=== PATIENT | male | born 1945 | race Asian ===

== ENCOUNTER 2018-10-09 11:50 | Emergency (ER) | payer OTHER ==
[~2018-10-09] VITALS: Ht 162.6 cm; Wt 68.2 kg
[2018-10-09] MEDS ORDERED: SODIUM CHLORIDE 0.9% 1,000 ML IV ONE (12:45)
[2018-10-09 12:48] LABS: GLUCOSE,POINT OF CARE 307 MG/DL (70-110)
[2018-10-09 13:23] LABS: BASOPHILS % (AUTO) 0.3 % (0.0-2.0); EOSINOPHILS % (AUTO) 0 % (1.0-6.0); HEMATOCRIT 25.6 % (41-53); HEMOGLOBIN 8.8 g/dL (13.5-17.5); LYMPHOCYTES % (AUTO) 12.5 % (22.0-44.0); MEAN CORPUSCULAR HGB CONC 34.4 G/dL (31.0-37.0); MEAN CORPUSCULAR VOLUME 96 fL (80-100); MONOCYTES # (AUTO) 0.3 K/uL (0.1-1.0); NEUTROPHILS # (AUTO) 6.3 K/uL (1.8-7.7); NEUTROPHILS % (AUTO) 83.2 % (40.0-70.0); PLATELET COUNT (AUTO) 141 K/uL (150-450); RED BLOOD CELL COUNT(AUTO) 2.67 MIL/uL (4.50-5.90); RED CELL DISTRIBUTION WIDTH 15.1 % (11.5-14.5)
[2018-10-09 13:39] LABS: BILIRUBIN,TOTAL 0.4 mg/dL (0.1-1.0); CREATININE 3.67 mg/dL (0.60-1.30); TOTAL PROTEIN, SERUM 6.4 g/dL (6.4-8.2)
[2018-10-09 14:18] LABS: GLUCOSE,POINT OF CARE 250 MG/DL (70-110)
[2018-10-09] MEDS ORDERED: CLOPIDOGREL BISULFATE 75 MG TABLET PO ONE (14:30)
[2018-10-09] MEDS ORDERED: TAMS0.4C32 PO (14:32)
[2018-10-09] MEDS ORDERED: LEVO88TA4 PO (14:32)
[2018-10-09] MEDS ORDERED: FURO40 PO (14:32)
[2018-10-09] MEDS ORDERED: ALLO300 PO (14:32)
[2018-10-09] MEDS ORDERED: ASPI81 PO (14:32)
[2018-10-09] MEDS ORDERED: ATOR40TA28 PO (14:32)
[2018-10-09] MEDS ORDERED: LOSA25TA16 PO (14:32)
[2018-10-09] MEDS ORDERED: CALC25 PO (14:32)
[2018-10-09] MEDS ORDERED: GLIP10 PO (14:32)
[2018-10-09 15:41] LABS: PROTHROMBIN TIME 10.6 SEC (9.4-11.6)
[2018-10-09] MEDS ORDERED: PANTOPRAZOLE SODIUM 40 MG/VIAL IVP ONE (17:00)
[2018-10-09] MEDS ORDERED: PANTOPRAZOLE SODIUM 80 MG in SODIUM CHLORIDE 0.9% 100 ML IV SCH (17:00)
[2018-10-09 18:48] VITALS: BP 130/70
[2018-10-09 18:54] LABS: GLUCOSE,POINT OF CARE 191 MG/DL (70-110)
== END 2018-10-09 19:10 | disposition short-term general hospital (02) ==
LOC: EMS 11:51
DX: K92.2 Gastrointestinal hemorrhage, unspecified (principal); E11.65 Type 2 diabetes mellitus with hyperglycemia; D64.9 Anemia, unspecified; N17.9 Acute kidney failure, unspecified; E11.21 Type 2 diabetes mellitus with diabetic nephropathy; R79.89 Other specified abnormal findings of blood chemistry; E78.00 Pure hypercholesterolemia, unspecified; E03.9 Hypothyroidism, unspecified; Z88.6 Allergy status to analgesic agent; Z88.0 Allergy status to penicillin
CPT/HCPCS: 36415; 70450; 71045; 80053; 82270; 82271; 82962; 84484; 85025; 85610; 85730; 93005; 96361; 96365; 96366; 96375; 99285; C9113; J7030; J7050

== ENCOUNTER 2018-11-23 05:33 | Inpatient (IN) | payer OTHER ==
[~2018-11-23] VITALS: Ht 162.6 cm; Wt 97.6 kg
[~2018-11-23 05:33] MED LIST: ALLO300 PO; ASPI81 PO; ATOR40TA28 PO; CALC25 PO; FURO40 PO; GLIP10 PO; LEVO88TA4 PO; LOSA25TA41 PO; TAMS0.4C32 PO
[2018-11-23] MEDS ORDERED: IPRATROPIUM BROMIDE 0.5 MG/2.5 ML NEB SOLUTION NEB ONE (06:00)
[2018-11-23] MEDS ORDERED: ALBUTEROL SULFATE 5 MG/ML 20 ML NEB SOLN [BULK] NEB ONE (06:00)
[2018-11-23 06:33] LABS: BASOPHILS % (AUTO) 0.6 % (0.0-2.0); EOSINOPHILS % (AUTO) 2.5 % (1.0-6.0); HEMATOCRIT 32.8 % (41-53); LYMPHOCYTES % (AUTO) 15.6 % (22.0-44.0); MEAN CORPUSCULAR HEMOGLOBIN 31.8 pg (26.0-34.0); MEAN CORPUSCULAR HGB CONC 33.4 G/dL (31.0-37.0); MEAN CORPUSCULAR VOLUME 95 fL (80-100); MONOCYTES # (AUTO) 0.6 K/uL (0.1-1.0); MONOCYTES % (AUTO) 8.7 % (2.0-9.0); NEUTROPHILS # (AUTO) 4.9 K/uL (1.8-7.7); NEUTROPHILS % (AUTO) 72.6 % (40.0-70.0); PLATELET COUNT (AUTO) 168 K/uL (150-450); RED BLOOD CELL COUNT(AUTO) 3.45 MIL/uL (4.50-5.90); RED CELL DISTRIBUTION WIDTH 16.2 % (11.5-14.5)
[2018-11-23 06:53] LABS: CALCIUM, TOTAL 9.3 mg/dL (8.8-10.5); CREATININE 3.44 mg/dL (0.60-1.30); POTASSIUM 4.1 mmol/L (3.5-5.1)
[2018-11-23 06:59] LABS: BILIRUBIN,TOTAL 0.4 mg/dL (0.1-1.0); TOTAL PROTEIN, SERUM 6.6 g/dL (6.4-8.2)
[2018-11-23] MEDS ORDERED: LEVOFLOXACIN 750 MG/D5% WATER 150 ML IV ONE (07:00)
[2018-11-23] MEDS ORDERED: AZITHROMYCIN 500 MG/NS 250 ML IV ONE (07:00)
[2018-11-23] MEDS ORDERED: METOPROLOL TARTRATE 5 MG/5 ML VIAL IVP ONE (07:15)
[2018-11-23] MEDS ORDERED: ASPIRIN 81 MG CHEWABLE TABLET PO ONE (07:15)
[2018-11-23] MEDS ORDERED: NITROGLYCERIN 2% (1 GM=INCH) PACKET TP ONE (07:15)
[2018-11-23] MEDS ORDERED: HEPARIN SODIUM,PORCINE 5,000 UNITS/ML VIAL IVP PRN ×4 (08:00→22:15)
[2018-11-23 08:03] LABS: PROTHROMBIN TIME 10.2 SEC (9.4-11.6)
[2018-11-23] MEDS: HEPARIN SODIUM 25000 UNITS/D5W 250 ML IV PRN ×2 (08:25→17:00)
[2018-11-23] MEDS ORDERED: HYDROCODONE/ACETAMINOPHEN 5-325 MG TABLET PO PRN (13:30)
[2018-11-23] MEDS ORDERED: MORPHINE SULFATE 4 MG/ML SYRINGE IVP PRN (13:30)
[2018-11-23] MEDS ORDERED: DEXTROSE 50%-WATER 25 GM/50 ML SYRINGE IVP PRN (13:30)
[2018-11-23] MEDS ORDERED: BISACODYL 10 MG RECTAL RECTAL SUPPOSITORY PR PRN (13:30)
[2018-11-23] MEDS ORDERED: ZOLPIDEM TARTRATE 5 MG TABLET PO PRN (13:30)
[2018-11-23] MEDS ORDERED: ACETAMINOPHEN 325 MG TABLET PO PRN (13:30)
[2018-11-23] MEDS ORDERED: ONDANSETRON HCL 4 MG/2 ML VIAL IVP PRN (13:30)
[2018-11-23] MEDS ORDERED: MAGNESIUM HYDROXIDE SUSPENSION 30 ML UDCUP PO PRN (13:30)
[2018-11-23 16:00] VITALS: BP 165/73
[2018-11-23] MEDS ORDERED: HEPARIN SODIUM,PORCINE 5,000 UNITS/ML VIAL SQ SCH (16:00)
[2018-11-23 17:09] LABS: APPEARANCE,URINE CLEAR (CLEAR); BILIRUBIN,URINE NEGATIVE (NEGATIVE); GLUCOSE, URINE (UA) 100 mg/dL (NEGATIVE); KETONES,URINE NEGATIVE (NEGATIVE); LEUKOCYTE ESTERASE ,URINE NEGATIVE (NEGATIVE); NITRATE,URINE NEGATIVE (NEGATIVE); OCCULT BLOOD,URINE TRACE (NEGATIVE); PROTEIN,URINE SEE CONFIRM (NEGATIVE); UROBILINOGEN,URINE 0.2 mg/dL (<=1.0)
[2018-11-23 17:14] LABS: PROTEIN,URINE RANDOM 447 mg/dL (0-11.9); SODIUM,URINE RANDOM 45 mmol/l (20-110); UREA NITROGEN,URINE RANDOM 620 mg/dL (350-1000)
[2018-11-23 17:31] LABS: SULFOSALICYLIC ACID,URINE 4+ (Negative)
[2018-11-23 17:32] LABS: BACTERIA,URINE Rare /HPF (None Seen); SQUAMOUS EPITHELIAL CELL,UR Few /LPF (None Seen); WBC,URINE 0-2 /HPF (0-5)
[2018-11-23] MEDS: INSULIN LISPRO 100 UNITS/ML SQ PRN ×2 (18:07→21:42)
[2018-11-23 20:00] VITALS: BP 166/87
[2018-11-23] MEDS ORDERED: FUROSEMIDE 20 MG/2 ML VIAL IVP SCH (21:00)
[2018-11-23] MEDS: DOCUSATE SODIUM 100 MG CAPSULE PO SCH (21:32)
[2018-11-23] MEDS ORDERED: HEPARIN SODIUM 25000 UNITS/D5W 250 ML IV PRN (22:06)
[2018-11-23] MEDS ORDERED: HydrALAZINE HCL 20 MG/ML VIAL IVP PRN (22:15)
[2018-11-23 22:39] LABS: GLUCOSE,POINT OF CARE 193 MG/DL (70-110)
[2018-11-24] VITALS: BP 147/61
[2018-11-24 04:00] VITALS: BP 169/87
[2018-11-24 05:19] LABS: GLUCOSE,POINT OF CARE 263 MG/DL (70-110)
[2018-11-24] MEDS ORDERED: LEVOTHYROXINE SODIUM 88 MCG TABLET PO SCH (06:30)
[2018-11-24 06:48] LABS: BASOPHILS % (AUTO) 0.4 % (0.0-2.0); EOSINOPHILS % (AUTO) 2.3 % (1.0-6.0); HEMATOCRIT 30.5 % (41-53); HEMOGLOBIN 10.4 g/dL (13.5-17.5); LYMPHOCYTES % (AUTO) 12.7 % (22.0-44.0); MEAN CORPUSCULAR HGB CONC 34.2 G/dL (31.0-37.0); MEAN CORPUSCULAR VOLUME 93 fL (80-100); MONOCYTES # (AUTO) 0.8 K/uL (0.1-1.0); MONOCYTES % (AUTO) 9.5 % (2.0-9.0); NEUTROPHILS % (AUTO) 75.1 % (40.0-70.0); PLATELET COUNT (AUTO) 160 K/uL (150-450); RED BLOOD CELL COUNT(AUTO) 3.26 MIL/uL (4.50-5.90); RED CELL DISTRIBUTION WIDTH 16.1 % (11.5-14.5)
[2018-11-24] MEDS: INSULIN LISPRO 100 UNITS/ML SQ PRN (07:11)
[2018-11-24 07:21] LABS: CALCIUM, TOTAL 9.2 mg/dL (8.8-10.5); CHOL/HDL RATIO 2.1 (4.2-7.3); CREATININE 2.93 mg/dL (0.60-1.30); PHOSPHORUS 4.2 mg/dL (2.5-4.9); POTASSIUM 4.3 mmol/L (3.5-5.1); THYROID STIMULATING HORMONE 0.2 uIU/mL (0.36-3.74)
[2018-11-24 08:00] VITALS: BP 157/81
[2018-11-24] MEDS: DOCUSATE SODIUM 100 MG CAPSULE PO SCH (08:06)
[2018-11-24 08:34] LABS: GLUCOSE,POINT OF CARE 170 MG/DL (70-110)
[2018-11-24] MEDS: NITROGLYCERIN 2% (1 GM=INCH) PACKET TP SCH ×2 (08:46→16:56)
[2018-11-24] MEDS ORDERED: CALCITRIOL 0.25 MCG CAPSULE PO SCH (09:00)
[2018-11-24] MEDS ORDERED: TAMSULOSIN HCL 0.4 MG CAPSULE PO SCH (09:00)
[2018-11-24] MEDS ORDERED: BUMETANIDE 0.25 MG/ML 4 ML VIAL IVP SCH (09:00)
[2018-11-24] MEDS ORDERED: PANTOPRAZOLE SODIUM 40 MG DR TABLET PO SCH (09:00)
[2018-11-24] MEDS ORDERED: ATORVASTATIN CALCIUM 40 MG TABLET PO SCH (09:00)
[2018-11-24] MEDS ORDERED: ASPIRIN 81 MG CHEWABLE TABLET PO SCH ×2 (09:00)
[2018-11-24 12:00] VITALS: BP 125/59
[2018-11-24 15:24] LABS: GLUCOSE,POINT OF CARE 155 MG/DL (70-110)
[2018-11-24 16:00] VITALS: BP 156/80
[2018-11-24] MEDS ORDERED: NITROGLYCERIN 2% (1 GM=INCH) PACKET TP SCH (16:00)
[2018-11-24 18:09] LABS: GLUCOSE,POINT OF CARE 132 MG/DL (70-110)
[2018-11-25 13:06] LABS: ALPHA-1 (IFE & PEP) 0.3 g/dL (0.0-0.4); GAMMA GLOBULINS (IFE & ELP) 1.3 g/dL (0.4-1.8); IGM (IMMUNOFIXATION) 78 mg/dL (15-143)
[2018-11-25 14:08] LABS: ALBUMIN URINE (ELP) 50.1 %
== END 2018-11-24 19:25 | disposition short-term general hospital (02) | DRG 280 ==
LOC: EMS 05:34 → ICU 15:12
PROVIDERS: ADMIT Internal Medicine; ATTEND Internal Medicine
DX: I21.4 Non-ST elevation (NSTEMI) myocardial infarction (principal); J18.9 Pneumonia, unspecified organism; I50.31 Acute diastolic (congestive) heart failure; I13.0 Hypertensive heart and chronic kidney disease with heart failure and stage 1 through stage 4 chronic kidney disease, or unspecified chronic kidney disease; N18.4 Chronic kidney disease, stage 4 (severe); E03.9 Hypothyroidism, unspecified; E11.22 Type 2 diabetes mellitus with diabetic chronic kidney disease; Z88.0 Allergy status to penicillin; E78.00 Pure hypercholesterolemia, unspecified; Z82.49 Family history of ischemic heart disease and other diseases of the circulatory system; N40.0 Benign prostatic hyperplasia without lower urinary tract symptoms; E11.319 Type 2 diabetes mellitus with unspecified diabetic retinopathy without macular edema; E11.65 Type 2 diabetes mellitus with hyperglycemia; E78.5 Hyperlipidemia, unspecified; M10.9 Gout, unspecified
CPT/HCPCS: 76770; 82570; 82784; 83605; 83735; 84100; 84155; 84156; 84165; 84166; 84300; 84443; 84540; 86334; 87040; 87081; 93005; 93306; 96365; 96375; 99291; G0378; J0360; J0456; J1644; J1956; J2270; J3490